=== PATIENT | female | born 1970 ===

== ENCOUNTER 2017-09-15 16:33 | Emergency (ER) | payer SELFPAY ==
[2017-09-15 16:33] VITALS: BMI 37.1
[2017-09-15 16:39] VITALS: BP 121/78; PULSE 75; RESP 20; TEMP 98.1; O2SAT 98
--- NOTE | 2017-09-15 17:24 | ED PDOC ---
Lower Extremity Pain/Injury Time Seen by Provider: 09/15/17 16:57 Chief Complaint (Nursing): Lower Extremity Problem/Injury Chief Complaint (Provider): Left leg pain History Per: Patient History/Exam Limitations: no limitations Onset/Duration Of Symptoms: Other (x1 week) Current Symptoms Are (Timing): Still Present Additional Complaint(s): 47 year old female presented to ED complaining of left leg pain with onset of 1 week. Patient indicates she travels frequently and reports swelling on the left knee. Denies fall or trauma. PCP: none provided Past Medical History Reviewed: Historical Data, Nursing Documentation, Vital Signs Vital Signs: Last Vital Signs Temp 98.1 F 09/15/17 16:37 Pulse 75 09/15/17 16:37 Resp 20 09/15/17 16:37 BP 121/78 09/15/17 16:37 Pulse Ox 98 09/15/17 16:37 - Medical History PMH: Anemia Denies: Chronic Kidney Disease - Surgical History Surgical History: No Surg Hx - Family History Family History: States: Unknown Family Hx - Social History Current smoker - smoking cessation education provided: No Alcohol: None Drugs: Denies - Home Medications Home Medications: Ambulatory Orders Medication Instructions Recorded Iron,Carb/Vit C/Vit B12/Folic 1 tab PO BID 06/08/14 [Iron 100 Plus 250 mg-25 Mcg-1 mg-100 mg] Naproxen 375 mg PO Q8 PRN #21 tablet 09/15/17 - Allergies Allergies/Adverse Reactions: Allergies Allergy/AdvReac Type Severity Reaction Status Date / Time No Known Allergies Allergy Verified 02/11/17 11:44 Review of Systems ROS Statement: Except As Marked, All Systems Reviewed And Found Negative Musculoskeletal: Positive for: Leg Pain (left), Other (left knee swelling) Physical Exam - Reviewed Nursing Documentation Reviewed: Yes Vital Signs Reviewed: Yes - Physical Exam Appears: Positive for: Non-toxic, No Acute Distress Head Exam: Positive for: ATRAUMATIC, NORMAL INSPECTION, NORMOCEPHALIC Skin: Positive for: Normal Color, Warm, Dry Eye Exam: Positive for: Normal appearance Neck: Positive for: Normal, Painless ROM Cardiovascular/Chest: Positive for: Regular Rate, Rhythm. Negative for: Murmur Respiratory: Positive for: Normal Breath Sounds. Negative for: Wheezing, Respiratory Distress Gastrointestinal/Abdominal: Positive for: Normal Exam, Soft. Negative for: Tenderness Back: Negative for: Other (tenderness) Extremity: Positive for: Normal ROM, Swelling (and tenderness to the knee), Other (Rula's sign and vacuous tenderness). Negative for: Tenderness ( extremities) Neurologic/Psych: Positive for: Alert, Oriented - ECG O2 Sat by Pulse Oximetry: 98 (RA) Pulse Ox Interpretation: Normal - Progress ED Course And Treament: DUPLEX: (-) DVT (+) 2.5 CM MORIN'S CYST Medical Decision Making Medical Decision Making: Initial Impression: left leg pain Initial Plan: US duplex lower extremities Scribe Attestation: Documented by Isael Patel acting as a scribe for Terry RIOS. Provider Scribe Attestation: All medical record entries made by the Scribe were at my direction and personally dictated by me. I have reviewed the chart and agree that the record accurately reflects my personal performance of the history, physical exam, medical decision making, and the department course for this patient. I have also personally directed, reviewed, and agree with the discharge instructions and disposition. Disposition - Clinical Impression Clinical Impression: Morin's cyst of knee - Patient ED Disposition Is Patient to be Admitted: No - Disposition Referrals: Rochelle Paris MD [Staff Provider] - [facility] [Outside] Disposition: Routine/Home Disposition Time: 18:38 Condition: FAIR Prescriptions: Naproxen 375 mg PO Q8 PRN #21 tablet PRN Reason: Pain, Moderate (4-7) Instructions: Morin's Cyst (DC) Forms: [employer] (Greenlandic) Print Language: CROATIAN
--- NOTE | 2017-09-16 11:07 | US ---
PROCEDURE: Left lower extremity duplex venous sonography HISTORY: r/o dvt COMPARISON: None available. TECHNIQUE: Real-time ultrasound scan of the veins with color flow, spectral waveform analysis and compression FINDINGS: Normal flow, augmentation and compressibility were noted. No evidence of deep vein thrombosis. Incidental finding(s): Septated popliteal fossa cyst 1.5 x 2.3 x 2.5 cm IMPRESSION: Negative study for acute deep vein thrombosis left lower extremity
== END 2017-09-15 18:45 | disposition home or self-care (01) ==
LOC: H.ER 16:33
DX: M71.22 Synovial cyst of popliteal space [Baker], left knee (principal)